=== PATIENT | male | born 1960 | race African-American/Black ===

== ENCOUNTER 2016-09-11 11:24 | Emergency (ER) ==
[2016-09-11 11:33] VITALS: BP 152/85; TEMP 97.5; BMI 31.9
--- NOTE | 2016-09-11 11:55 | ED.PDOC ---
General ED Provider: Dr. AYAZ CROFT JR Chief Complaint: Knee Pain/Injury Stated Complaint: Hx left knee pain years ago chronic since. "gnawing" constant pain [place] for pain, not today driving to ER.[End]97.5 81 20 98% 152/85 8/10 Time Seen by Physician: 11:52 Information Source: Patient Exam Limitations: No limitations Primary Care Provider: KODAK RAMIREZ Nursing and Triage Documentation Reviewed and Agree: No Review of Systems - Review Of Systems Constitutional: Reports: No symptoms Eyes: Reports: No symptoms Ears, Nose, Mouth, Throat: Reports: No symptoms Respiratory: Reports: No symptoms Cardiac: Reports: No symptoms GI: Reports: No symptoms : Reports: No symptoms Musculoskeletal: Reports: Joint pain Skin: Reports: No symptoms Neurological: Reports: No symptoms Endocrine: Reports: No symptoms Hematologic/Lymphatic: Reports: No symptoms All Other Systems: Other Past Medical History - Past Medical History Endocrine: Reports: DM 2 Cardiovascular: Reports: Hypertension Respiratory: Reports: Asthma Hematological: Reports: None Gastrointestinal: Reports: None Genitourinary: Reports: None Neuro/Psych: Reports: None Musculoskeletal: Reports: Arthritis Cancer: Reports: None - Surgical History General Surgical History: Reports: None - Family History Family History: Reports: Unknown - Social History Smoking Status: Never smoker Hx Substance Use: No Alcohol Screening: None Physical Exam - Physical Exam Appearance: Well-appearing, No pain distress, Well-nourished Pain Distress: Mild Eyes: RASHID, EOMI, Conjunctiva clear ENT: Ears normal, Nose normal, Oropharynx normal Neck: Supple Respiratory: Airway patent, Breath sounds clear, Breath sounds equal, Respirations nonlabored Cardiovascular: RRR, Pulses normal, No rub, No murmur GI/: Soft, Nontender, No masses, Bowel sounds normal, No Organomegaly Musculoskeletal: Normal strength, ROM intact, No edema, No calf tenderness ( tender left knee especially LCL MCL) Skin: Warm, Dry, Normal color Neurological: Sensation intact, Motor intact, Reflexes intact, Cranial nerves intact, Alert, Oriented Critical Care Note - Critical Care Note Total Time (mins): 0 Course - Course Orders, Labs, Meds: Orders Category Date Time Status KNEE, LEFT 4 VIEWS Stat RADS 09/11/16 11:54 Completed Vital Signs: Temp Pulse Resp BP Pulse Ox 09/11/16 11:25 97.5 F L 81 20 152/85 H 98 Departure - Departure Time of Disposition: 12:35 Disposition: HOME SELF-CARE Discharge Problem: Knee pain Instructions: Knee Pain (ED), Patellofemoral Pain Syndrome (ED) Condition: Good Pt referred to PMD for follow-up: Yes Additional Instructions: discuss medication with PMD bones of knee are normal recommend stretching of both knee joints consider physical therapy for symptoms Allergies/Adverse Reactions: Allergies No Known Allergies Allergy (Unverified 09/11/16 11:33)
--- NOTE | 2016-09-11 12:32 | DI ---
EXAM: Four views of the left knee HISTORY: Increasing left knee pain. COMPARISON: None FINDINGS: Medial and lateral compartments of the left knee are normal. There is no lytic or blastic lesion. There is no displaced fracture or dislocation. The patella is normal with mild degenerati ve change/osteophyte formation. The soft tissues demonstrate no significant effusion. IMPRESSION: Minimal patellofemoral degenerative change with note additional abnormality or fracture of the left knee.
== END 2016-09-11 12:45 | disposition home or self-care (01) ==
LOC: ED 11:24
DX: M25.562 Pain in left knee (principal); G89.29 Other chronic pain
CPT/HCPCS: 99282

== ENCOUNTER → 2017-01-15 | Outpatient (POV) | LOC: OUTPT 00:01 | PROVIDERS: ATTEND Otolaryngology | DX: H91.90 Unspecified hearing loss, unspecified ear (principal) ==

== ENCOUNTER 2017-12-19 07:46 | Emergency (ER) | payer OTHER ==
[2017-12-19 07:57] VITALS: BMI 32.5
--- NOTE | 2017-12-19 08:13 | ED.PDOC ---
General ED Provider: Dr. CY MEJIA Chief Complaint: Back Pain Stated Complaint: Back pain and abdominal pressure. has experienced pain for past month described as pressure discomfort located in upper abdomen-RUQ and Mid epigastrium radiating around his back. Experiencing Nausea, Bloating, and sensation needs to belch. Saw PCP last week and prescribed Zantac without improvment. States pain is 8/10 and not letting up. Time Seen by Physician: 08:00 Mode of Arrival: Wheelchair Information Source: Patient Exam Limitations: No limitations Primary Care Provider: KODAK RAMIREZ Nursing and Triage Documentation Reviewed and Agree: Yes Does patient meet sepsis criteria?: No System Inflammatory Response Syndrome: Not Applicable Sepsis Protocol: For patient's 13 years and over: Temp is 96.8 and below OR 101 and greater Pulse >90 BPM Resp >20/minute Acutely Altered Mental Status Are patient's symptoms suggestive of a new infection, such as: -Pneumonia -Skin, Soft Tissue -Endocarditis -UTI -Bone, Joint Infection -Implantable Device -Acute Abdominal Infection -Wound Infection -Meningitis -Blood Stream Catheter Infection -Unknown Musculoskeletal Complaint Exam - Back Pain Complaint/Exam Mechanism of Injury: Reports: No known trauma Onset/Duration: 24 hr Symptoms Are: Still present Timing: Intermittent Episodes Lasting: Hours Initial Severity: Moderate Current Severity: Mild Location: Reports: Discrete Character: Reports: Aching, Spasmodic Aggravating: Reports: Movements Alleviating: Reports: None Associated Signs and Symptoms: Reports: Abdominal pain (abdominal pressure). Denies: Swelling, Redness, Bruising, Fever, Weakness, Numbness, Tingling, Flank pain, Bladder incontinence, Bowel incontinence, Weight loss, Pain with weight bearing Related History: Reports: Similar episode TAD Risk Factors: Reports: None AAA Risk Factors: Reports: None Cauda Equina Risk Factors: Reports: None Epidural Abcess Risk Factors: Reports: None Related Surgical History: Reports: None Focal Tenderness: No Paraspinal Muscle Tenderness: No Paraspinal Muscle Spasm: No Scoliosis: No Lordosis: No Kyphosis: No SLR Test: Right Negative, Left Negative Hip Motion Testing Pain: Right Negative, Left Negative Focal Weakness: Present: None Focal Sensory Loss: Present: None Gait: Present: Normal Differential Diagnoses: Strain, Other (Low back pain; gastric reflux; hypertension ) Review of Systems - Review Of Systems Constitutional: Reports: No symptoms Eyes: Reports: No symptoms Ears, Nose, Mouth, Throat: Reports: No symptoms Respiratory: Reports: No symptoms Cardiac: Reports: No symptoms GI: Reports: Abdomen distended, Abdominal pain, Nausea : Reports: No symptoms Musculoskeletal: Reports: Back pain Skin: Reports: No symptoms Neurological: Reports: No symptoms Endocrine: Reports: No symptoms Hematologic/Lymphatic: Reports: No symptoms All Other Systems: Reviewed and Negative Past Medical History - Past Medical History Endocrine: Reports: DM 2 Cardiovascular: Reports: Hypertension Respiratory: Reports: Asthma Hematological: Reports: None Gastrointestinal: Reports: Other (abdominal discomfort and gastritis) Genitourinary: Reports: None Neuro/Psych: Reports: None Musculoskeletal: Reports: Arthritis Cancer: Reports: None - Surgical History General Surgical History: Reports: None - Family History Family History: Reports: Unknown - Social History Smoking Status: Current some day smoker Hx Substance Use: No Alcohol Screening: None Lives: With family Physical Exam - Physical Exam Appearance: Well-appearing, No pain distress, Well-nourished, Obese Ill-appearing: None Pain Distress: None Eyes: RASHID, EOMI, Conjunctiva clear (no appreciable icterus) ENT: Ears normal, Nose normal, Oropharynx normal Neck: Supple Respiratory: Airway patent, Breath sounds clear, Breath sounds equal, Respirations nonlabored Cardiovascular: RRR, Pulses normal, No rub, No murmur GI/: Soft, No masses, Bowel sounds normal, No Organomegaly, Tender (RUQ and mid epigastrium) Musculoskeletal: Normal strength, ROM intact, No edema, No calf tenderness Skin: Warm, Dry, Normal color Neurological: Sensation intact, Motor intact, Reflexes intact, Alert, Oriented Psychiatric: Affect appropriate, Mood appropriate Interpretation - Radiology Interpretation Radiology Interpretation By: Radiologist Exam Interpreted: CT Scan (ABDOM/PELVIS-CHOLECYSTITIS AND BILIARY DILATION / POSSIBLE MASS OR LN YULY HEPATIS) Radiology Interpretation By: Radiologist Radiology Results: No acute changes (pericholecystic inflamation and bile duct diliation) Exam Interpreted: CXR, CT Scan, Other (LUMBAR SPINE) Critical Care Note - Critical Care Note Total Time (mins): 30 Course - Course Hematology/Chemistry: 12/19/17 08:30 12/19/17 08:30 Orders, Labs, Meds: Lab Review 12/19/17 12/19/17 12/19/17 08:00 08:30 08:30 WBC 7.06 RBC 4.80 Hgb 13.8 L Hct 42.4 MCV 88.3 MCH 28.8 MCHC 32.5 RDW Coeff of Hien 14.5 Plt Count 370 Immature Gran % (Auto) 0.6 Neut % (Auto) 81.8 Lymph % (Auto) 10.5 Rankin % (Auto) 5.5 Eos % (Auto) 1.0 Baso % (Auto) 0.6 Immature Gran # (Auto) 0.0 Neut # (Auto) 5.8 Lymph # (Auto) 0.7 Rankin # (Auto) 0.4 Eos # (Auto) 0.1 Baso # (Auto) 0.0 Sodium 138 Potassium 4.2 Chloride 100 Carbon Dioxide 28 Anion Gap 14.2 BUN 12 Creatinine 0.84 Estimated GFR (MDRD) 114.00 BUN/Creatinine Ratio 14.28 Glucose 135 H Calcium 9.6 Total Bilirubin 2.6 H AST 399 H ALT 419 H Alkaline Phosphatase 135 Troponin I 0.0150 Total Protein 7.8 Albumin 3.9 Globulin 3.9 Albumin/Globulin Ratio 1.00 Amylase Lipase Urine Color Yellow Urine Clarity Clear Urine pH 7.5 Ur Specific Chicken 1.020 Urine Protein 1+ Urine Glucose (UA) Negative Urine Ketones Negative Urine Blood Negative Urine Nitrite Negative Urine Bilirubin 1+ Urine Urobilinogen >=8.0 Ur Leukocyte Esterase Negative Ur Squamous Epith Cells 0-2 Urine Mucus Trace 12/19/17 08:30 WBC RBC Hgb Hct MCV MCH MCHC RDW Coeff of Hien Plt Count Immature Gran % (Auto) Neut % (Auto) Lymph % (Auto) Rankin % (Auto) Eos % (Auto) Baso % (Auto) Immature Gran # (Auto) Neut # (Auto) Lymph # (Auto) Rankin # (Auto) Eos # (Auto) Baso # (Auto) Sodium Potassium Chloride Carbon Dioxide Anion Gap BUN Creatinine Estimated GFR (MDRD) BUN/Creatinine Ratio Glucose Calcium Total Bilirubin AST ALT Alkaline Phosphatase Troponin I Total Protein Albumin Globulin Albumin/Globulin Ratio Amylase 112 Lipase 21 Urine Color Urine Clarity Urine pH Ur Specific Chicken Urine Protein Urine Glucose (UA) Urine Ketones Urine Blood Urine Nitrite Urine Bilirubin Urine Urobilinogen Ur Leukocyte Esterase Ur Squamous Epith Cells Urine Mucus Orders Category Date Time Status EKG-(ED ONLY) Stat CARDIO 12/19/17 08:20 Completed NPO REMINDER: IMAGING ONCE CARE 12/19/17 09:52 Completed ED IV/MEDIPORT/POWERPORT .ONCE EMERGENCY 12/19/17 09:52 Active IV [ED IV/MEDIPORT/POWERPORT] .ONCE EMERGENCY 12/19/17 12:00 Active AMYLASE Stat LAB 12/19/17 08:30 Completed CBC W/ AUTO DIFF Stat LAB 12/19/17 08:30 Completed CMP [COMPREHENSIVE METABOLIC PANEL] Stat LAB 12/19/17 08:30 Completed LIPASE Stat LAB 12/19/17 08:30 Completed TROPONIN I Stat LAB 12/19/17 08:30 Completed UA [URINALYSIS C & S IF INDICATED] Stat LAB 12/19/17 08:00 Completed 0.9 % Sodium Chloride [Saline Flush] MEDS 12/19/17 12:01 Ordered 1 syr IVF PRN PRN Mag Hydrox/Al Hydrox/Simeth [Mylanta Susp] MEDS 12/19/17 08:23 Discontinued 30 ml PO ONCE STA Mag-Al Plus//Lidocaine [Gi Cocktail] MEDS 12/19/17 09:45 Discontinued 30 ml PO ONCE STA Ondansetron [Zofran Odt] MEDS 12/19/17 08:23 Discontinued 4 mg PO ONCE STA Sodium Chloride 0.9% [Sodium Chloride] 500 ml MEDS 12/19/17 12:01 Active IV 125 mls/hr CHEST, 2 VIEWS PA & LAT Stat RADS 12/19/17 08:[address] ABDOMEN/PELVIS W CONTRAST Stat RADS 12/19/17 09:[address] ABDOMEN/PELVIS WO CONTRAST Stat RADS 12/19/17 08:20 Completed LUMBAR SPINE, 2 OR 3 VIEWS Stat RADS 12/19/17 08:22 Completed Medications Generic Name Dose Route Start Last Admin Trade Name Freq PRN Reason Stop Dose Admin Sodium Chloride 500 mls @ 125 mls/hr 12/19/17 12:01 Sodium Chloride IV 12/19/17 16:00 .Q4H STA Sodium Chloride 1 syr 12/19/17 12:01 Saline Flush IVF PRN PRN To flush IV Discontinued Medications Generic Name Dose Route Start Last Admin Trade Name Freq PRN Reason Stop Dose Admin Al Hydroxide/Mg Hydroxide 30 ml 12/19/17 08:23 12/19/17 08:40 Mylanta Susp PO 12/19/17 08:24 30 ml ONCE STA Administration Al Hydroxide/Mg Hydroxide 30 ml 12/19/17 09:45 12/19/17 10:07 Gi Cocktail PO 12/19/17 09:46 30 ml ONCE STA Administration Ondansetron HCl 4 mg 12/19/17 08:23 12/19/17 08:39 Zofran Odt PO 12/19/17 08:24 4 mg ONCE STA Administration Vital Signs: Temp Pulse Resp BP Pulse Ox 12/19/17 11:41 98.3 F 59 L 16 158/77 H 98 12/19/17 07:49 97.6 F 70 20 156/87 H 98 Departure - Departure Time of Disposition: 11:50 Disposition: TSF SHORT-TRM HOSP Discharge Problem: Cholecystitis, Bile duct abnormality Condition: Good Pt referred to PMD for follow-up: Yes (Post hospitalization at [facility] under DR Nava ) IPMP verified?: No Allergies/Adverse Reactions: Allergies No Known Allergies Allergy (Verified 12/19/17 07:55) Home Medications: Ambulatory Orders Albuterol Sulfate [Proventil Hfa] 6.7 gm IH PRN PRN 12/19/17 Cyclobenzaprine HCl 10 mg PO DAILY 12/19/17 Hydrochlorothiazide 25 mg PO DAILY 12/19/17 Losartan Potassium [Cozaar] 50 mg PO DAILY 12/19/17 Metformin HCl [Metformin HCl ER] 500 mg PO BID 12/19/17 Metoprolol Tartrate 25 mg PO BID 12/19/17 Montelukast Sodium 10 mg PO DAILY 12/19/17 Nabumetone [Relafen] 1,000 mg PO BIDWM 12/19/17 Ranitidine HCl 150 mg PO BID 12/19/17 Transfer Form Completed: Yes Disposition Discussed With: Patient, Other (Dr Christy Nava at [facility]. Discussed Case-Accepted patient for admisson in order to conduct additonal evaluation an treatment) GI Complaint Exam - Abdominal Pain Complaint/Exam Onset: Gradual (Fullness /no pain) Symptoms Are: Still present (Sensation of fullness like he has to belch) Timing: Intermittent Initial Severity: Moderate Current Severity: Mild Location of Pain: RUQ, Epigastric Radiates To: Reports: Back Character: Reports: Aching Aggravating: Reports: Movement Alleviating: Reports: Rest Differential Diagnoses: Pancreatitis, Irritable Bowel Syndrome, GB, PUD Quality Indicator For Non-Traumatic Chest Pain/Syncope: EKG Performed Additional Information: [id number]: DISCUSSED CT ABDOMINAL FINDINGS [facility] PATIENT AND DIAGNOSTIC EVALUATION PLAN 1140: Discussed case with Dr Christy Nava at [facility]. Discussed Case- Accepted patient for admission in order to conduct additional evaluation an treatment. Explained findings and concerns to patient and he agrees to the transfer
[2017-12-19] MEDS ORDERED: MYLANTA SUSP PO STA (08:23)
[2017-12-19] MEDS ORDERED: ZOFRAN ODT PO STA (08:23)
--- NOTE | 2017-12-19 09:10 | DI ---
EXAM: PA and lateral views of the chest HISTORY: Chest pain and pressure. COMPARISON: Chest x-ray 08/20/2016 FINDINGS: The cardiomediastinal silhouette is normal. There is no pneumothorax or pleural effusion. There is no consolidation, nodule or mass. The osseous structures are unremarkable. IMPRESSION: No acute cardiopulmonary process
--- NOTE | 2017-12-19 09:11 | DI ---
EXAM: Three views of the lumbar spine HISTORY: Lumbar pain. COMPARISON: Lumbar spine x-rays 08/20/2016 FINDINGS: There is no acute compression fracture or subluxation. There is mild facet arthropathy in the lower lumbar spine. There are few tiny anterior disc osteophytes. The lumbosacral junction is i ntact. The soft tissues are unremarkable. IMPRESSION: 1. No acute compression fracture or subluxation. 2. Mild scattered degenerative disease in the lower lumbar spine, stable since 2017.
--- NOTE | 2017-12-19 09:43 | CT ---
EXAM: CT Abdomen without contrast. CT Pelvis without contrast. HISTORY: Back pain and pressure. Chest pain and pressure. COMPARISON: None available. TECHNIQUE: Multiple axial images of the abdomen and pelvis were obtained without intravenous contras t. Images were reformatted in the sagittal and coronal plane. FINDINGS: Please note that evaluation of the abdominal and pelvic structures is limited due to lack of intravenous contrast. Noncalcified nodules are present in both lung bases with the largest measuring 0.4 cm in the right mi ddle lobe on axial image 6. No acute osseous abnormality detected. Gallbladder is mildly distended, and the wall is slightly indistinct. Mild biliary dilatation is jane pected although not well characterized. There is increased density with loss of fat planes within th e johana hepatis on axial 31 as well as within the fat adjacent to the in the medial left hepatic lobe on axial image 32 noted. The pancreas, spleen, and adrenal glands demonstrate normal contour. Exophytic fluid density lesion in the lateral left renal cortex measures up to 1.6 cm on coronal image 49 similar sized fluid densit y lesion in the upper pole cortex of the right kidney on coronal image 67. No calcified renal stones or hydronephrosis identified. The bowel is normal in course and caliber without evidence for obstruction or inflammatory process. The appendix is normal. Colonic diverticulosis is seen. Bladder is normal. Phleboliths present in t he pelvis. Fat-containing right inguinal hernia is present. IMPRESSION: 1. Findings suspicious for cholecystitis and biliary dilatation which may be due to more distal bili kimber obstruction. 2. Loss of the fat planes within the johana hepatis raises suspicion for mass/lymphadenopathy, potent ially the source for #1 above. Correlation with abdominal MRI recommended. 3. Probable bilateral renal cysts which can be further evaluated on the above recommended imaging.
[2017-12-19] MEDS ORDERED: GI COCKTAIL PO STA (09:45)
--- NOTE | 2017-12-19 11:11 | CT ---
Exam: CT abdomen pelvis with intravenous contrast. Comparison: CT without contrast performed on the same day. Reason for exam: Mass, cholecystitis. FINDINGS: Mild basilar atelectasis without pleural effusion, or focal consolidation. There is moderate periportal edema with prominence of the biliary system. Wall thickening is seen within the gallbladder with pericholecystic inflammatory change. There is a soft tissue component seen in the hilar region. The pancreas appears grossly unremarkable without du ctal dilatation. The adrenal glands appear unremarkable. No hydronephrosis, hydroureter or nephrolithiasis in either kidney. There are bilateral renal hypode nsities that statistically would be cysts. The bladder appears grossly unremarkable. No focal small bowel dilatation or transition point. The appendix appears unremarkable. No intra-abdominal free air or pelvic free fluid. No suspicious appearing osteoblastic or osteolytic lesions. Impression: 1. Periportal edema with prominence of the biliary tract. No contrast enhancing mass is seen althou gh a mass lesion in the region of the johana hepatis could explain the imaging findings. MRI is recom mended for further characterization (MRCP). 2. Pericholecystic inflammatory change with wall thickening. Imaging findings can be seen with prima ry cholecystitis but may also be secondary to obstruction of the johana hepatis. MRI would be recommen ded for further characterization of the johana hepatis. If clinical concern exists for gallbladder pa thology, ultrasound of the right upper quadrant may be performed. 3. Renal hypodensities likely cysts. These findings would be evaluated with the aforementioned MRI.
[2017-12-19 11:42] VITALS: BP 158/77; TEMP 98.3
[2017-12-19] MEDS ORDERED: SODIUM CHLORIDE 500 ML IV STA (12:01)
== END 2017-12-19 12:42 | disposition short-term general hospital (02) ==
LOC: ED 07:46
DX: K81.9 Cholecystitis, unspecified (principal); R93.2 Abnormal findings on diagnostic imaging of liver and biliary tract; I10 Essential (primary) hypertension; E11.9 Type 2 diabetes mellitus without complications; F17.210 Nicotine dependence, cigarettes, uncomplicated
CPT/HCPCS: 36415; 80053; 81001; 82150; 83690; 84484; 85025; 93005; 93010; 96360; 99285

== ENCOUNTER 2017-12-19 12:41 | Outpatient (CLI) ==
[2017-12-19 07:57] VITALS: BMI 32.5
== END 2017-12-19 13:04 | disposition short-term general hospital (02) ==
LOC: AMBL 12:41
PROVIDERS: ATTEND Emergency Medicine
DX: R10.9 Unspecified abdominal pain (principal)